=== PATIENT | female | born 1940 | race Hispanic/Latino ===

== ENCOUNTER → 2018-01-01 | Outpatient (CLI) | payer OTHER | END | disposition home or self-care (01) | LOC: RAH 09:23 | PROVIDERS: ATTEND Family Medicine | DX: Z12.31 Encounter for screening mammogram for malignant neoplasm of breast (principal) | CPT/HCPCS: 77067 ==

== ENCOUNTER 2018-09-26 20:52 | Emergency (ER) | payer OTHER | END 2018-09-26 21:20 | disposition home or self-care (01) | LOC: EDH 20:52 | DX: S01.511A Laceration without foreign body of lip, initial encounter (principal); I10 Essential (primary) hypertension; E11.9 Type 2 diabetes mellitus without complications; Z88.0 Allergy status to penicillin; W18.39XA Other fall on same level, initial encounter; Y93.01 Activity, walking, marching and hiking; Y92.89 Other specified places as the place of occurrence of the external cause; Y99.8 Other external cause status | CPT/HCPCS: 99281 ==

== ENCOUNTER 2020-04-04 12:24 | Inpatient (IN) | payer OTHER ==
[~2020-04-04] VITALS: Ht 147.3 cm; Wt 60.9 kg
[2020-04-04] MEDS ORDERED: MORPHINE 2 MG SYG ONE ×2 (13:34→16:47)
[2020-04-04] MEDS ORDERED: ONDANSETRON 4MG INJ ONE ×2 (13:34→20:40)
[2020-04-04 13:41] LABS: BASOPHILS % (AUTO) 0.3 % (0.0-5.0); EOSINOPHILS % (AUTO) 2.7 % (0.0-8.0); HEMATOCRIT 40.8 % (36-48); LYMPHOCYTES % (AUTO) 10.5 % (21.0-51.0); MEAN CORPUSCULAR HEMOGLOBIN 26.1 pg (27.0-33.0); MEAN CORPUSCULAR HGB CONC 31.4 g/dL (32.0-36.0); MEAN CORPUSCULAR VOLUME 83.3 fL (79-99); MONOCYTES % (AUTO) 7.5 % (3.0-13.0); NEUTROPHILS % (AUTO) 78.2 % (40.0-77.0); PLATELET COUNT (AUTO) 406 K/uL (130-400); RED CELL DISTRIBUTION WIDTH 15.2 % (11.0-15.5); WHITE BLOOD COUNT (AUTO) 13.3 K/uL (4.8-10.8)
[2020-04-04 13:52] LABS: ALBUMIN 3.6 g/dL (3.5-5.0); BILIRUBIN,TOTAL 0.9 mg/dL (0.2-1.0); CREATININE 1.6 mg/dL (0.5-1.5); POTASSIUM 3.3 mmol/L (3.5-5.1); TOTAL PROTEIN, SERUM 8.1 g/dL (6.0-8.3)
[2020-04-04] MEDS ORDERED: 0.9%NACL 1000ML 1,000 ML IV ONE ×2 (14:24→16:46)
[2020-04-04] MEDS ORDERED: CEFTRIAXONE 1G VIAL ONE (14:24)
[2020-04-04 14:44] LABS: APPEARANCE,URINE Clear (CLEAR); BILIRUBIN,URINE Negative (NEGATIVE); COLOR,URINE Yellow (YELLOW); GLUCOSE, URINE (UA) 250 mg/dL (NEGATIVE); KETONES,URINE 40 mg/dL (NEGATIVE); LEUKOCYTE ESTERASE ,URINE Trace (NEGATIVE); NITRATE,URINE Negative (NEGATIVE); OCCULT BLOOD,URINE Negative (NEGATIVE); PROTEIN,URINE 300 mg/dL (NEGATIVE)
[2020-04-04 14:55] LABS: BACTERIA,URINE Few /HPF (None Seen); MUCUS,URINE Few LPF (None Seen); SQUAMOUS EPITHELIAL CELL,UR Few /HPF (0-2)
[2020-04-04] MEDS ORDERED: IOHEXOL-350 75 ML VIAL IV ONE (14:58)
[2020-04-04] MEDS ORDERED: METRONIDAZOLE 500MG/100ML BAG 100 ML ONE (15:37)
[2020-04-04] MEDS ORDERED: MORPHINE 2 MG SYG IVP PRN (16:30)
[2020-04-04] MEDS ORDERED: POTASSIUM CHLORIDE 20MEQ/100ML 100 ML IV PRN (16:30)
[2020-04-04] MEDS ORDERED: KCL 20 MEQ ERTAB PO PRN (16:30)
[2020-04-04] MEDS ORDERED: GLUCAGON 1MG KIT 1 MG ML IM PRN (16:30)
[2020-04-04] MEDS ORDERED: ONDANSETRON 4MG INJ IVP PRN (16:30)
[2020-04-04] MEDS: 0.9%NACL 1000ML 1,000 ML IV SCH (16:30)
[2020-04-04] MEDS ORDERED: LIDOCAINE HCL-MPF 1% 2ML VIAL IV PRN ×2 (16:30)
[2020-04-04] MEDS ORDERED: DEXTROSE 50%-WATER 50 ML DISP.SYRIN IV PRN (16:30)
[2020-04-04] MEDS ORDERED: PANTOPRAZOLE 40 MG/VIAL ONE (16:47)
[2020-04-04] MEDS ORDERED: LABETALOL 20MG VIAL IV PRN (17:00)
[2020-04-04 17:58] LABS: INR 1.12 (0.85-1.15); PROTHROMBIN TIME 12.1 SEC (9.6-11.6)
[2020-04-04 17:59] LABS: PARTIAL THROMBOPLASTIN TIME 24.9 SEC (26.3-35.5)
[2020-04-04] MEDS: INSULIN HUMULIN R 100 UNIT/ML 3ML SQ SCH (18:00)
[2020-04-04] MEDS ORDERED: LIDOCAINE PF 100MG/5ML (2%) SYRINGE 5ML ONE (20:40)
[2020-04-04] MEDS ORDERED: DEXAMETHASONE SOD PHOSPHATE 10MG/ML 1ML VIAL ONE (20:40)
[2020-04-04] MEDS ORDERED: SUCCINYLCHOLINE CHLORIDE 20 MG/ML 10 ML VIAL ONE (20:40)
[2020-04-04] MEDS ORDERED: MIDAZOLAM HCL 1 MG/ML 2ML VIAL ONE (20:41)
[2020-04-04] MEDS ORDERED: PROPOFOL 10 MG/ML 20ML VIAL IV ONE (20:41)
[2020-04-04] MEDS ORDERED: ROCURONIUM 10MG/1ML SYR 10 MG/ML ML ONE ×2 (20:41→22:39)
[2020-04-04] MEDS ORDERED: FENTANYL CITRATE PF 50 MCG/1 ML 2ML VIAL ONE (20:41)
[2020-04-04] MEDS ORDERED: GLYCOPYRROLATE 1 MG/5 ML SYRINGE ONE (20:41)
[2020-04-04] MEDS ORDERED: NEOSTIGMINE 5MG/5ML SYR IV ONE (20:41)
[2020-04-04] MEDS ORDERED: ESMOLOL HCL 10 MG/ML 10 ML VIAL ONE (20:58)
[2020-04-04] MEDS ORDERED: EPINEPHRINE PF 1MG AMP ONE (21:09)
[2020-04-04] MEDS ORDERED: NEOMY SULF/POLYMYXIN B SULFATE 1 ML AMPUL IR ONE ×3 (21:18→21:53)
[2020-04-04] MEDS ORDERED: ALBUMIN (HUMAN) 25% 100 ML IV ONE (21:22)
[2020-04-04] MEDS ORDERED: HETASTARCH IN 0.9 % NACL 500 ML IV ONE (21:22)
[2020-04-04] MEDS ORDERED: POTASSIUM CHLORIDE 20MEQ/100ML 100 ML IV ONE ×2 (21:28→21:37)
[2020-04-04] MEDS ORDERED: VASOPRESSIN 20 UNITS/ML 1ML VIAL ONE (22:03)
[2020-04-04] MEDS ORDERED: SODIUM BICARB 8.4% 50ML SYRINGE ONE (22:17)
[2020-04-04 22:36] LABS: ABG BASE EXCESS 6.4 mmol/L (-2.0-3.0); ABG HCO3 32.8 mmol/L (21.0-28.0); ABG PCO2 59 mmHg (32-45)
[2020-04-04 23:12] VITALS: BP 84/54
[2020-04-04] MEDS ORDERED: PROPOFOL 1000 MG/100 ML 100 ML IV ONE (23:24)
[2020-04-04 23:43] VITALS: BP_SYST 156; BP_SYST 162; BP_DIAS 67; BP_DIAS 81
[2020-04-05] VITALS (26 sets, daily range): BP systolic 91–156; BP diastolic 40–85
[2020-04-05] MEDS ORDERED: KETOROLAC 15MG/ML VIAL (15MG/ML) IV PRN (00:15)
[2020-04-05] MEDS ORDERED: ACETAMINOPHEN 650 MG SUPPOSITORY RC PRN ×2 (00:15)
[2020-04-05] MEDS ORDERED: ONDANSETRON 4MG INJ IVP PRN (00:15)
[2020-04-05] MEDS: 0.9%NACL 1000ML 1,000 ML IV SCH ×3 (00:36→22:28)
[2020-04-05] MEDS: PANTOPRAZOLE 40 MG/VIAL IVP SCH ×3 (00:43→21:41)
[2020-04-05] MEDS: METRONIDAZOLE 500MG/100ML BAG 100 ML IVPB SCH ×4 (00:43→22:09)
[2020-04-05 00:44] LABS: ABG BASE EXCESS -2.4 mmol/L (-2.0-3.0); ABG HCO3 21.3 mmol/L (21.0-28.0); ABG OXYGEN SATURATION 98.7 % (95.0-99.0); ABG PCO2 34 mmHg (32-45)
[2020-04-05 03:49] LABS: BASOPHILS % (AUTO) 0.4 % (0.0-5.0); LYMPHOCYTES % (AUTO) 15.4 % (21.0-51.0); MEAN CORPUSCULAR HEMOGLOBIN 25.9 pg (27.0-33.0); MEAN CORPUSCULAR HGB CONC 30.8 g/dL (32.0-36.0); MEAN CORPUSCULAR VOLUME 84.2 fL (79-99); MONOCYTES % (AUTO) 7.5 % (3.0-13.0); NEUTROPHILS % (AUTO) 76.7 % (40.0-77.0); PLATELET COUNT (AUTO) 196 K/uL (130-400); RED BLOOD CELL COUNT(AUTO) 2.97 MIL/uL (4.00-5.50); RED CELL DISTRIBUTION WIDTH 15.3 % (11.0-15.5); WHITE BLOOD COUNT (AUTO) 2.8 K/uL (4.8-10.8)
[2020-04-05 04:04] LABS: ALBUMIN 1.4 g/dL (3.5-5.0); BILIRUBIN,TOTAL 0.6 mg/dL (0.2-1.0); MAGNESIUM 0.9 mg/dL (1.80-2.40); TOTAL PROTEIN, SERUM 2.9 g/dL (6.0-8.3)
[2020-04-05 04:22] LABS: POTASSIUM 2.9 mmol/L (3.5-5.1)
[2020-04-05 04:44] LABS: BAND NEUTROPHILS % (MANUAL) 48 % (0-2); LYMPHOCYTES % (MANUAL) 13 % (22-44); MAN.DIFF COMMENT-IMPRESSION MANUAL DIFFERENTIAL; METAMYELOCYTES % 4 % (0-0); MONOCYTES % (MANUAL) 8 % (2-9); SEGMENTED NEUTROPHILS % 27 % (40-70)
[2020-04-05] MEDS ORDERED: PROPOFOL 1000 MG/100 ML 100 ML IV SCH (05:45)
[2020-04-05] MEDS: POTASSIUM CHLORIDE 20MEQ/100ML 100 ML IV PRN ×2 (05:53→09:03)
[2020-04-05] MEDS: INSULIN HUMULIN R 100 UNIT/ML 3ML SQ SCH ×4 (06:00→17:46)
[2020-04-05] MEDS: FLUCONAZOLE 200 MG/NS 100 ML 100 ML IV SCH (09:02)
[2020-04-05 12:25] LABS: CREATININE 1.5 mg/dL (0.5-1.5); POTASSIUM 4.6 mmol/L (3.5-5.1); TROPONIN I 0.15 ng/mL (0.00-0.06)
[2020-04-05] MEDS ORDERED: LACTATED RINGERS 1000ML IV SCH (12:45)
[2020-04-05] MEDS ORDERED: PHARMACY COMMUNICATION MISC SCH (12:45)
[2020-04-05] MEDS ORDERED: LACTATED RINGERS 1000ML 1,000 ML IV ONE (12:47)
[2020-04-05] MEDS ORDERED: CEFTRIAXONE 500MG VIAL IV SCH (14:00)
[2020-04-05 14:14] LABS: ABG BASE EXCESS -2.9 mmol/L (-2.0-3.0); ABG HCO3 21.2 mmol/L (21.0-28.0); ABG OXYGEN SATURATION 90.7 % (95.0-99.0); ABG PCO2 34 mmHg (32-45)
[2020-04-05] MEDS ORDERED: CEFTRIAXONE 1G VIAL ONE (15:08)
[2020-04-05] MEDS: CEFTRIAXONE 1G VIAL IV SCH (15:29)
[2020-04-06] VITALS (14 sets, daily range): BP systolic 97–175; BP diastolic 48–88
[2020-04-06] MEDS: METRONIDAZOLE 500MG/100ML BAG 100 ML IVPB SCH ×3 (05:22→22:39)
[2020-04-06] MEDS: INSULIN HUMULIN R 100 UNIT/ML 3ML SQ SCH ×2 (06:00)
[2020-04-06] MEDS: 0.9%NACL 1000ML 1,000 ML IV SCH ×3 (07:12→22:39)
[2020-04-06 08:08] LABS: BASOPHILS % (AUTO) 0.4 % (0.0-5.0); EOSINOPHILS % (AUTO) 0.2 % (0.0-8.0); HEMATOCRIT 25.5 % (36-48); LYMPHOCYTES % (AUTO) 7.6 % (21.0-51.0); MEAN CORPUSCULAR HEMOGLOBIN 26.5 pg (27.0-33.0); MEAN CORPUSCULAR HGB CONC 31.4 g/dL (32.0-36.0); MEAN CORPUSCULAR VOLUME 84.4 fL (79-99); MONOCYTES % (AUTO) 4.2 % (3.0-13.0); PLATELET COUNT (AUTO) 231 K/uL (130-400); RED BLOOD CELL COUNT(AUTO) 3.02 MIL/uL (4.00-5.50); RED CELL DISTRIBUTION WIDTH 16.5 % (11.0-15.5); WHITE BLOOD COUNT (AUTO) 10.4 K/uL (4.8-10.8)
[2020-04-06 08:26] LABS: ALBUMIN 1.7 g/dL (3.5-5.0); BILIRUBIN,TOTAL 0.5 mg/dL (0.2-1.0); CREATININE 1.2 mg/dL (0.5-1.5); MAGNESIUM 1.2 mg/dL (1.80-2.40); POTASSIUM 3.6 mmol/L (3.5-5.1); TOTAL PROTEIN, SERUM 4.2 g/dL (6.0-8.3)
[2020-04-06] MEDS: PANTOPRAZOLE 40 MG/VIAL IVP SCH ×2 (09:56→21:36)
[2020-04-06] MEDS: FLUCONAZOLE 200 MG/NS 100 ML 100 ML IV SCH (10:00)
[2020-04-06] MEDS: CEFTRIAXONE 1G VIAL IV SCH (15:15)
[2020-04-06] MEDS ORDERED: CLINIMIX-E4.25%AA/D5+LYT2000ML 2,000 ML IV SCH (18:00)
[2020-04-07] VITALS (15 sets, daily range): BP systolic 145–177; BP diastolic 59–79
[2020-04-07] MEDS: MAGNESIUM 2GM PREMIX 50ML 50 ML IV PRN (00:21)
[2020-04-07] MEDS: 0.9%NACL 1000ML 1,000 ML IV SCH ×3 (04:41→11:21)
[2020-04-07] MEDS: METRONIDAZOLE 500MG/100ML BAG 100 ML IVPB SCH ×3 (06:10→22:29)
[2020-04-07] MEDS: INSULIN HUMULIN R 100 UNIT/ML 3ML SQ SCH ×3 (06:43→18:09)
[2020-04-07] MEDS: PANTOPRAZOLE 40 MG/VIAL IVP SCH ×2 (09:07→21:00)
[2020-04-07] MEDS: FLUCONAZOLE 200 MG/NS 100 ML 100 ML IV SCH (09:07)
[2020-04-07] MEDS ORDERED: FUROSEMIDE 20MG VIAL IV SCH (13:45)
[2020-04-07] MEDS: CEFTRIAXONE 1G VIAL IV SCH (14:45)
[2020-04-07] MEDS ORDERED: CLINIMIX-E4.25%AA/D5+LYT2000ML 2,000 ML IV SCH (16:00)
[2020-04-08] MEDS: HYDROMORPHONE 2 MG VIAL (2MG/ML) IVP PRN (03:25)
[2020-04-08 03:27] VITALS: BP 152/83
[2020-04-08] MEDS: METRONIDAZOLE 500MG/100ML BAG 100 ML IVPB SCH ×3 (04:36→21:39)
[2020-04-08 05:51] LABS: BASOPHILS % (AUTO) 0.3 % (0.0-5.0); EOSINOPHILS % (AUTO) 0.6 % (0.0-8.0); HEMATOCRIT 24.7 % (36-48); LYMPHOCYTES % (AUTO) 8.2 % (21.0-51.0); MEAN CORPUSCULAR HEMOGLOBIN 25.9 pg (27.0-33.0); MEAN CORPUSCULAR HGB CONC 31.6 g/dL (32.0-36.0); MEAN CORPUSCULAR VOLUME 82.1 fL (79-99); NEUTROPHILS % (AUTO) 84.5 % (40.0-77.0); NUCLEATED RED BLOOD CELLS 0.2 % (0.0-0.19); PLATELET COUNT (AUTO) 205 K/uL (130-400); RED BLOOD CELL COUNT(AUTO) 3.01 MIL/uL (4.00-5.50); RED CELL DISTRIBUTION WIDTH 16.2 % (11.0-15.5); WHITE BLOOD COUNT (AUTO) 10.3 K/uL (4.8-10.8)
[2020-04-08] MEDS: INSULIN HUMULIN R 100 UNIT/ML 3ML SQ SCH ×4 (06:00→18:11)
[2020-04-08 06:20] LABS: CREATININE 0.7 mg/dL (0.5-1.5); MAGNESIUM 1.6 mg/dL (1.80-2.40); POTASSIUM 3.2 mmol/L (3.5-5.1)
[2020-04-08] MEDS: MAGNESIUM 2GM PREMIX 50ML 50 ML IV PRN (07:34)
[2020-04-08 08:00] VITALS: BP 166/84
[2020-04-08] MEDS: PANTOPRAZOLE 40 MG/VIAL IVP SCH ×2 (09:00→21:00)
[2020-04-08] MEDS: FUROSEMIDE 20MG VIAL IV SCH (10:32)
[2020-04-08] MEDS: POTASSIUM CHLORIDE 20MEQ/100ML 100 ML IV PRN (11:34)
[2020-04-08] MEDS: 0.9%NACL 1000ML 1,000 ML IV SCH (11:34)
[2020-04-08 12:00] VITALS: BP 164/86
[2020-04-08] MEDS: FLUCONAZOLE 200 MG/NS 100 ML 100 ML IV SCH (13:50)
[2020-04-08] MEDS: CEFTRIAXONE 1G VIAL IV SCH (15:28)
[2020-04-08 16:00] VITALS: BP 155/95
[2020-04-08] MEDS: CLINIMIX-E4.25%AA/D5+LYT2000ML 2,000 ML IV SCH (17:00)
[2020-04-08 19:57] VITALS: BP 154/72
[2020-04-08 23:27] VITALS: BP 157/79
[2020-04-09] MEDS: HYDROMORPHONE 2 MG VIAL (2MG/ML) IVP PRN (01:45)
[2020-04-09 04:03] VITALS: BP 152/69
[2020-04-09 04:26] LABS: HEMATOCRIT 26.1 % (36-48); MEAN CORPUSCULAR HEMOGLOBIN 26.3 pg (27.0-33.0); MEAN CORPUSCULAR HGB CONC 32.2 g/dL (32.0-36.0); MEAN CORPUSCULAR VOLUME 81.8 fL (79-99); RED BLOOD CELL COUNT(AUTO) 3.19 MIL/uL (4.00-5.50); RED CELL DISTRIBUTION WIDTH 16.1 % (11.0-15.5); WHITE BLOOD COUNT (AUTO) 6.9 K/uL (4.8-10.8)
[2020-04-09 04:38] LABS: CREATININE 0.7 mg/dL (0.5-1.5); POTASSIUM 3.3 mmol/L (3.5-5.1)
[2020-04-09] MEDS: INSULIN HUMULIN R 100 UNIT/ML 3ML SQ SCH ×4 (06:00→18:00)
[2020-04-09] MEDS: METRONIDAZOLE 500MG/100ML BAG 100 ML IVPB SCH ×3 (06:35→23:08)
[2020-04-09] MEDS: CLINIMIX-E4.25%AA/D5+LYT2000ML 2,000 ML IV SCH (07:43)
[2020-04-09 08:00] VITALS: BP 127/62
[2020-04-09] MEDS ORDERED: DIATR MEGLU/DIATRIZOATE SODIUM 30 ML BOTTLE ONE (08:46)
[2020-04-09] MEDS: FUROSEMIDE 20MG VIAL IV SCH (08:51)
[2020-04-09] MEDS: FLUCONAZOLE 200 MG/NS 100 ML 100 ML IV SCH (08:51)
[2020-04-09] MEDS: FAMOTIDINE 20MG VIAL IV SCH (09:00)
[2020-04-09 12:00] VITALS: BP 161/79
[2020-04-09] MEDS: CEFTRIAXONE 1G VIAL IV SCH (15:55)
[2020-04-09 16:00] VITALS: BP 138/68
[2020-04-09 19:15] VITALS: BP 149/73
[2020-04-09] MEDS: 0.9%NACL 1000ML 1,000 ML IV SCH (23:09)
[2020-04-09 23:56] VITALS: BP 164/71
[2020-04-10 03:10] VITALS: BP 143/67
[2020-04-10] MEDS ORDERED: ACETAMINOPHEN 325 MG TAB ONE (03:45)
[2020-04-10 05:40] LABS: HEMATOCRIT 27.6 % (36-48); MEAN CORPUSCULAR HGB CONC 31.5 g/dL (32.0-36.0); MEAN CORPUSCULAR VOLUME 82.6 fL (79-99); RED BLOOD CELL COUNT(AUTO) 3.34 MIL/uL (4.00-5.50); RED CELL DISTRIBUTION WIDTH 16.3 % (11.0-15.5); WHITE BLOOD COUNT (AUTO) 8.2 K/uL (4.8-10.8)
[2020-04-10 06:13] LABS: CREATININE 0.6 mg/dL (0.5-1.5); MAGNESIUM 1.8 mg/dL (1.80-2.40); POTASSIUM 3.3 mmol/L (3.5-5.1)
[2020-04-10] MEDS: METRONIDAZOLE 500MG/100ML BAG 100 ML IVPB SCH ×3 (06:51→22:19)
[2020-04-10] MEDS: INSULIN HUMULIN R 100 UNIT/ML 3ML SQ SCH ×4 (06:51→22:21)
[2020-04-10] MEDS: FLUCONAZOLE 200 MG/NS 100 ML 100 ML IV SCH (09:41)
[2020-04-10] MEDS: FUROSEMIDE 20MG VIAL IV SCH ×2 (09:41→23:30)
[2020-04-10] MEDS: FAMOTIDINE 20MG VIAL IV SCH (09:41)
[2020-04-10] MEDS: POTASSIUM CHLORIDE 10% ELIXIR 20 MEQ/15 ML UDCUP PO PRN ×3 (09:42→17:35)
[2020-04-10 11:37] VITALS: BP 146/71
[2020-04-10] MEDS: 0.9%NACL 1000ML 1,000 ML IV SCH (11:54)
[2020-04-10] MEDS: ACETAMINOPHEN 325 MG TAB PO PRN (12:05)
[2020-04-10 15:12] LABS: INR 1.6 (0.85-1.15); PROTHROMBIN TIME 16.7 SEC (9.6-11.6)
[2020-04-10 16:00] VITALS: BP 156/87
[2020-04-10] MEDS: CEFTRIAXONE 1G VIAL IV SCH (17:34)
[2020-04-10] MEDS: MAGNESIUM 2GM PREMIX 50ML 50 ML IV PRN (17:36)
[2020-04-10 20:33] VITALS: BP 153/66
[2020-04-11] VITALS (8 sets, daily range): BP systolic 131–164; BP diastolic 45–79
[2020-04-11] MEDS: METRONIDAZOLE 500MG/100ML BAG 100 ML IVPB SCH ×3 (05:26→21:32)
[2020-04-11 06:16] LABS: HEMATOCRIT 27.1 % (36-48); MEAN CORPUSCULAR HEMOGLOBIN 25.7 pg (27.0-33.0); MEAN CORPUSCULAR VOLUME 82.9 fL (79-99); RED BLOOD CELL COUNT(AUTO) 3.27 MIL/uL (4.00-5.50); RED CELL DISTRIBUTION WIDTH 16.5 % (11.0-15.5); WHITE BLOOD COUNT (AUTO) 10.3 K/uL (4.8-10.8)
[2020-04-11] MEDS: INSULIN HUMULIN R 100 UNIT/ML 3ML SQ SCH ×4 (06:42→21:36)
[2020-04-11 06:43] LABS: ALBUMIN 1.7 g/dL (3.5-5.0); BILIRUBIN,TOTAL 0.4 mg/dL (0.2-1.0); CREATININE 0.6 mg/dL (0.5-1.5); MAGNESIUM 1.8 mg/dL (1.80-2.40); PHOSPHORUS 3.5 mg/dL (2.5-4.9); POTASSIUM 3.1 mmol/L (3.5-5.1); TOTAL PROTEIN, SERUM 5.2 g/dL (6.0-8.3)
[2020-04-11] MEDS: FLUCONAZOLE 200 MG/NS 100 ML 100 ML IV SCH (09:23)
[2020-04-11] MEDS: FAMOTIDINE 20MG VIAL IV SCH (09:24)
[2020-04-11] MEDS: FUROSEMIDE 20MG VIAL IV SCH ×2 (09:24→21:32)
[2020-04-11] MEDS: 0.9%NACL 1000ML 1,000 ML IV SCH (11:21)
[2020-04-11] MEDS: POTASSIUM CHLORIDE 10% ELIXIR 20 MEQ/15 ML UDCUP PO PRN ×2 (12:20→14:21)
[2020-04-11] MEDS: MAGNESIUM 2GM PREMIX 50ML 50 ML IV PRN (14:21)
[2020-04-11] MEDS: CEFTRIAXONE 1G VIAL IV SCH (16:09)
[2020-04-11 17:08] LABS: MAGNESIUM 2.3 mg/dL (1.80-2.40); POTASSIUM 3.5 mmol/L (3.5-5.1)
[2020-04-12 03:59] VITALS: BP 130/57
[2020-04-12 04:05] LABS: CREATININE 0.6 mg/dL (0.5-1.5); POTASSIUM 3.3 mmol/L (3.5-5.1)
[2020-04-12] MEDS: METRONIDAZOLE 500MG/100ML BAG 100 ML IVPB SCH ×3 (05:27→22:06)
[2020-04-12] MEDS: POTASSIUM CHLORIDE 10% ELIXIR 20 MEQ/15 ML UDCUP PO PRN ×3 (05:35→14:59)
[2020-04-12] MEDS: INSULIN HUMULIN R 100 UNIT/ML 3ML SQ SCH ×4 (06:08→21:00)
[2020-04-12 07:00] VITALS: BP 150/69
[2020-04-12 11:30] VITALS: BP 156/72
[2020-04-12] MEDS: FLUCONAZOLE 200 MG/NS 100 ML 100 ML IV SCH (11:47)
[2020-04-12] MEDS: FUROSEMIDE 20MG VIAL IV SCH ×2 (11:48→22:06)
[2020-04-12] MEDS: FAMOTIDINE 20MG VIAL IV SCH (11:48)
[2020-04-12] MEDS: 0.9%NACL 1000ML 1,000 ML IV SCH (12:15)
[2020-04-12] MEDS: CEFTRIAXONE 1G VIAL IV SCH (14:58)
[2020-04-12 15:30] VITALS: BP 151/67
[2020-04-12 20:00] VITALS: BP 163/84
[2020-04-12 23:46] VITALS: BP 158/72
[2020-04-13 04:00] VITALS: BP 137/66
[2020-04-13 05:24] LABS: CREATININE 0.6 mg/dL (0.5-1.5); POTASSIUM 3.7 mmol/L (3.5-5.1)
[2020-04-13] MEDS: METRONIDAZOLE 500MG/100ML BAG 100 ML IVPB SCH ×3 (05:56→22:11)
[2020-04-13] MEDS: INSULIN HUMULIN R 100 UNIT/ML 3ML SQ SCH ×4 (05:57→21:00)
[2020-04-13 08:00] VITALS: BP 152/73
[2020-04-13] MEDS: FAMOTIDINE 20MG VIAL IV SCH (09:33)
[2020-04-13] MEDS: FLUCONAZOLE 200 MG/NS 100 ML 100 ML IV SCH (09:34)
[2020-04-13] MEDS: FUROSEMIDE 20MG VIAL IV SCH ×2 (09:34→21:00)
[2020-04-13 11:54] VITALS: BP 155/74
[2020-04-13] MEDS: 0.9%NACL 1000ML 1,000 ML IV SCH (13:49)
[2020-04-13 16:37] VITALS: BP 148/73
[2020-04-13] MEDS: CEFTRIAXONE 1G VIAL IV SCH (16:57)
[2020-04-13] MEDS: ACETAMINOPHEN 325 MG TAB PO PRN (19:55)
[2020-04-14] VITALS: BP 159/72
== END 2020-04-14 01:25 | DRG 853 ==
LOC: EDH 12:24 → EDHIP 16:19 → 2DH 23:23 → 3CH 04-07 13:51
PROVIDERS: ADMIT Internal Medicine; ATTEND Internal Medicine
PROC: 5A1935Z Respiratory Ventilation, Less than 24 Consecutive Hours (ICD-10-PCS; 2020-04-04)
PROC: 0BH17EZ Insertion of Endotracheal Airway into Trachea, Via Natural or Artificial Opening (ICD-10-PCS; 2020-04-04)
PROC: 02HV33Z Insertion of Infusion Device into Superior Vena Cava, Percutaneous Approach (ICD-10-PCS; 2020-04-04)
PROC: 0DU907Z Supplement Duodenum with Autologous Tissue Substitute, Open Approach (ICD-10-PCS; principal; 2020-04-04 20:56)
PROC: 0D9600Z Drainage of Stomach with Drainage Device, Open Approach (ICD-10-PCS; 2020-04-04 20:56)
DX: A41.50 Gram-negative sepsis, unspecified (principal); K65.0 Generalized (acute) peritonitis; K26.5 Chronic or unspecified duodenal ulcer with perforation; R18.8 Other ascites; E87.1 Hypo-osmolality and hyponatremia; N17.9 Acute kidney failure, unspecified; E46 Unspecified protein-calorie malnutrition; N39.0 Urinary tract infection, site not specified; T81.31XA Disruption of external operation (surgical) wound, not elsewhere classified, initial encounter; E87.6 Hypokalemia; Z20.822 Contact with and (suspected) exposure to COVID-19; D64.9 Anemia, unspecified; E11.9 Type 2 diabetes mellitus without complications; I10 Essential (primary) hypertension; Z66 Do not resuscitate; Y92.238 Other place in hospital as the place of occurrence of the external cause; Z68.28 Body mass index [BMI] 28.0-28.9, adult; Z88.0 Allergy status to penicillin; Z83.3 Family history of diabetes mellitus
CPT/HCPCS: 36415; 71045; 74150; 74177; 74240; 80048; 80053; 81001; 82150; 82435; 82550; 82803; 82947; 82948; 83605; 83690; 83735; 83874; 84100; 84132; 84295; 84484; 85014; 85018; 85025; 85027; 85610; 85730; 86850; 86900; 86901; 86923; 87040; 87077; 87186; 87426; 93005; 94002; 94003; 97039; A4357; C1894; C9113; G0378; J0171; J0330; J0696; J1100; J1170; J1450; J1815; J1940; J2001; J2250; J2405; J2704; J2710; J3010; J3475; J3480; J3490; J7030; J7040; J7120; P9047; Q9963; Q9967; U0003

== ENCOUNTER → 2022-12-26 | Outpatient (CLI) | payer OTHER | END | disposition home or self-care (01) | LOC: RAH 07:29 | PROVIDERS: ATTEND Family Medicine | DX: Z12.31 Encounter for screening mammogram for malignant neoplasm of breast (principal) | CPT/HCPCS: 77067 ==

== ENCOUNTER → 2024-01-05 | Outpatient (CLI) | payer OTHER ==
--- NOTE | 2024-01-06 09:26 | HMCIMG ---
MAMMO SCREENING BILATERAL HISTORY: Screening mammogram. COMPARISON: 12/26/2022 TECHNIQUE: Bilateral screening mammogram with CAD was performed with craniocaudal and mediolateral oblique projections. FINDINGS: There are scattered areas of fibroglandular density. Vascular calcifications are seen. There is no evidence of a dominant mass, or suspicious microcalcification. There is no evidence of nipple retraction or skin thickening. IMPRESSION: 1. Stable mammogram. Patient was entered into a reminder system with a target due date for their next mammogram. BI-RADS: CATEGORY 2: BENIGN FINDINGS Recommend monthly self breast exam as well as annual clinical examination. A negative x-ray should not delay biopsy if a dominant or clinically suspicious mass is present, since 8-10% of cancers are not identified by mammography. Dense breasts particularly, may obscure an underlying neoplasm. Some of these may be detected clinically and therefore, clinical examination is an essential part of breast evaluation.
== END | disposition home or self-care (01) ==
LOC: RAH 14:37
PROVIDERS: ATTEND Family Medicine
DX: Z12.31 Encounter for screening mammogram for malignant neoplasm of breast (principal); R92.323 Mammographic fibroglandular density, bilateral breasts; R92.1 Mammographic calcification found on diagnostic imaging of breast
CPT/HCPCS: 77067

== ENCOUNTER → 2025-01-06 | Outpatient (CLI) | payer OTHER | END | disposition home or self-care (01) | LOC: RAH 13:31 | PROVIDERS: ATTEND Family Medicine | DX: Z12.31 Encounter for screening mammogram for malignant neoplasm of breast (principal) | CPT/HCPCS: 77067 ==